=== PATIENT | male | born 1985 | race Caucasian/White ===

== ENCOUNTER 2017-09-04 16:31 | Emergency (ER) | payer OTHER ==
[~2017-09-04] VITALS: Ht 172.7 cm; Wt 69.0 kg
[2017-09-04] MEDS ORDERED: SODIUM CHLORIDE FLUSH 10ML SYR IVF ONE (17:30)
[2017-09-04] MEDS ORDERED: PROPOFOL 10 MG/ML, 100ML IV ONE (17:30)
[2017-09-04 18:59] VITALS: BP 97/48
== END 2017-09-04 19:18 | disposition home or self-care (01) ==
LOC: ED 18:45
DX: T18.5XXA Foreign body in anus and rectum, initial encounter (principal); Y93.89 Activity, other specified; Y99.8 Other external cause status; Y92.89 Other specified places as the place of occurrence of the external cause
CPT/HCPCS: 45915; 72170; 74018; 99152; 99153; 99285; J2704